=== PATIENT | male | born 2000 | race Caucasian/White ===

== ENCOUNTER 2018-03-30 16:46 | Emergency (ER) | payer OTHER ==
[2018-03-30 17:52] VITALS: BP 117/65
--- NOTE | 2018-03-30 18:15 | ED ---
GI/ HPI - HPI Summary HPI Summary: 17 yr old with boil at base of penis on the very proximal shaft. It is painful , slight fluctuant and at this point not draining. He denies fever, chills. Denies others with similar symptoms. No other complaints. - History of Current Complaint Chief Complaint: [facility]CG[facility] Time Seen by Provider: 03/30/18 17:55 Stated Complaint: SKIN COMPLAINT Pain Intensity: 2 - Allergy/Home Medications Allergies/Adverse Reactions: Allergies Allergy/AdvReac Type Severity Reaction Status Date / Time No Known Allergies Allergy Verified 03/30/18 17:43 Home Medications: Home Medications Aloe 1 udc TOPICAL DAILY PRN 03/30/18 [History Confirmed 03/30/18] Ibuprofen TAB* [Advil TAB*] 400 mg PO Q6H PRN 03/30/18 [History Confirmed ] Sunscreen 1 udc TOPICAL DAILY PRN 03/30/18 [History Confirmed 03/30/18] PMH/Surg Hx/FS Hx/Imm Hx Endocrine/Hematology History: Denies: Hx Diabetes Respiratory History: Denies: Hx Asthma Infectious Disease History: No Infectious Disease History: Denies: Traveled Outside the [place] in Last 30 Days - Family History Known Family History: Positive: None - Social History Alcohol Use: Occasionally Substance Use Type: Reports: None Smoking Status (MU): Never Smoked Tobacco Review of Systems Constitutional: Negative Positive: other - penile lesion, pain, swelling All Other Systems Reviewed And Are Negative: Yes Physical Exam Triage Information Reviewed: Yes Vital Signs On Initial Exam: Initial Vitals Temp Pulse Resp BP Pulse Ox 99.7 F 89 16 117/65 100 03/30/18 17:46 03/30/18 17:46 03/30/18 17:46 03/30/18 17:46 03/30/18 17:46 Vital Signs Reviewed: Yes Appearance: Positive: Well-Appearing, No Pain Distress Skin: Positive: Warm Head/Face: Positive: Normal Head/Face Inspection Neck: Positive: Nontender Respiratory/Lung Sounds: Positive: Clear to Auscultation, Breath Sounds Present Cardiovascular: Positive: RRR. Negative: Murmur Abdomen Description: Positive: Nontender Male Genital Exam: Positive: No Hernia, Lesions - at base right penis with some mild fluctuance, no drainage. There is mild redness. Mild tenderness. 1 cm diameter lesion. Negative: Epididymal Tenderness, Hernia Mass, Inguinal Tenderness, Scrotum Tenderness (R), Scrotum Tenderness (L), Testicular Tenderness (R), Testicular Tenderness (L), Urethral Discharge Musculoskeletal: Positive: Strength/ROM Intact Neurological: Positive: Sensory/Motor Intact, Alert, Oriented to Person Place, Time, CN Intact II-III Psychiatric: Positive: Normal Diagnostics - Vital Signs Vital Signs Temp Pulse Resp BP Pulse Ox 03/30/18 17:46 99.7 F 89 16 117/65 100 - Laboratory Lab Statement: Any lab studies that have been ordered have been reviewed, and results considered in the medical decision making process. GIGU Course/Dx - Course Course Of Treatment: 17 yr old with boil on penis. Rx with bactrim DS. FU with urology. If worse go to ER. - Diagnoses Provider Diagnoses: Boil of penis Discharge - Sign-Out/Discharge Documenting (check all that apply): Discharge/Admit/Transfer - Discharge Plan Condition: Good Disposition: HOME Prescriptions: Sulfamethox/Trimethoprim DS* [Bactrim DS 800/160 TAB*] 1 tab PO BID #20 tab Patient Education Materials: Furunculosis and Carbunculosis (ED) Referrals: JAMIE Price [Primary Care Provider] - 1 Day Sai Kelly MD [Medical Doctor] - 1 Day Jones Saldivar MD [Medical Doctor] - 1 Day Additional Instructions: You have been given two urologist to call; one in [place] and one in [place]. Call tomorrow to get an appointment with one of them. If your symptoms worsen go to the ER immediately. - Billing Disposition and Condition Condition: GOOD Disposition: HOME
== END 2018-03-30 18:13 | disposition home or self-care (01) ==
LOC: UCCORT 16:46
DX: N48.21 Abscess of corpus cavernosum and penis (principal)
CPT/HCPCS: 99212; G0463